=== PATIENT | male | born 1995 | race Caucasian/White ===

== ENCOUNTER 2018-09-06 10:19 | Emergency (ER) | payer OTHER ==
[~2018-09-06 10:19] MED LIST: CEFU500T10 PO; HYDR-4309 PO; RIZA5TAB30 PO
[2018-09-06 10:52] LABS: PLATELET COUNT, AUTOMATED 156 K/uL (150-450)
--- NOTE | 2018-09-06 11:04 | ER Report ---
History and Physical Time Seen By MD: 10:58 Hx. of Stated Complaint: STARTED WITH SUBXIPHOID AND MID ABD PAIN SINCE YESTERDAY WITH ASSOCIATED SOB, NAUSEA. Also noticed "fast heart rate," and fever/chill symptoms. HPI/ROS CHIEF COMPLAINT: Abdominal pain and chest discomfort HISTORY OF PRESENT ILLNESS: This is a 22-year-old male presents to the emergency department for abdominal pain and chest discomfort. Patient states that after midnight early this morning he developed some abdominal pain which radiated into his chest, felt his heart racing has taken Tylenol to help with the discomfort which is not helped. Patient does have intermittent abdominal pain bilateral lower quadrants, no dysuria, normal bowel movement today. No blood in the stools. Does have intermittent nausea no vomiting. While I'm in speaking with him his resting heart rate is in the 100s. He denies alcohol use. He states that he did drink a lot of water last night and this morning. So has aches and chills no fevers. REVIEW OF SYSTEMS: Constitutional: As above. Eyes: No discharge. ENT: No sore throat. Cardiovascular: As above. Respiratory: No cough, no shortness of breath. Gastrointestinal: As above. Genitourinary: No hematuria. Musculoskeletal: No back pain. Skin: No rashes. Neurological: No headache. Allergies: Coded Allergies: No Known Drug Allergies (Unverified , 09/03/17) Home Meds Active Scripts Ondansetron (ZOFRAN ODT) 4 Mg Tab.rapdis, 4 MG PO Q6H PRN for NAUSEA/VOMITING, #20 TAB.RAJAN 0 Refills Prov:JUAN CARLOS MCCOY GEODETIC COMPUTATOR-BC 09/06/18 Reported Medications Rizatriptan Benzoate (MAXALT) 5 Mg Tablet, 5 MG PO DAILY PRN for HEADACHE 09/03/17 Discontinued Reported Medications Hydrocodone Bit/Acetaminophen (NORCO 5-325 TABLET) 1 Each Tablet, 1-2 EACH PO Q4H PRN for PAIN, #30 TAB 09/08/17 Cefuroxime Axetil (CEFUROXIME) 500 Mg Tablet, 1000 MG PO BID for 7 Days, #14 TAB 09/08/17 Past Medical/Surgical History The patient has no significant past medical or surgical history. Reviewed Nurses Notes: Yes Hx Smoking: Yes Smoking Status: Never Smoker Hx Substance Use Disorder: No Constitutional Vital Sign - Last 24 Hours 09/06/18 09/06/18 09/06/18 09/06/18 10:19 10:24 10:28 10:34 Temp 98.8 Pulse ??? 99 101 Resp 16 18 B/P (MAP) 138/86 (103) 138/86 Pulse Ox 96 96 O2 Delivery Room Air 09/06/18 09/06/18 09/06/18 09/06/18 10:49 11:04 11:09 11:39 Pulse 106 111 103 99 Resp 16 9 10 34 Pulse Ox 96 97 97 95 09/06/18 09/06/18 09/06/18 09/06/18 11:44 11:59 12:14 12:29 Pulse 96 ??? 100 107 Resp 24 23 34 Pulse Ox 95 94 97 09/06/18 09/06/18 09/06/18 09/06/18 12:44 12:59 13:14 13:19 Pulse 101 108 99 96 Resp 18 18 18 19 Pulse Ox 94 95 98 97 09/06/18 09/06/18 13:27 13:34 Pulse 99 Resp 10 B/P (MAP) 125/75 (92) Pulse Ox 96 O2 Delivery Room Air Physical Exam General Appearance: The patient is alert, has no immediate need for airway protection and no signs of toxicity. Eyes: Pupils equal and round no pallor or injection. ENT, Mouth: Mucous membranes are moist. Respiratory: There are no retractions, lungs are clear to auscultation. Cardiovascular: Regular rate and rhythm, no murmurs, clicks or rubs. Gastrointestinal: Abdomen is soft, mild tenderness with deep palpation on the right lower quadrant no rebound tenderness. Significant discomfort to the left lower quadrant with palpation. Normoactive bowel sounds. No masses. No abdominal bruits. Neurological: Alert and oriented 4. Moving all extremities. Following all commands. No focal neuro deficits. Skin: Warm and dry, no rashes. Musculoskeletal: Neck is supple non tender. Extremities are nontender, nonswollen and have full range of motion. DIFFERENTIAL DIAGNOSIS: After history and physical exam differential diagnosis was considered for abdominal pain including but not limited to appendicitis, cholecystitis, gastritis and urinary tract infection. Medical Decision Making Data Points Result Diagram: 09/06/18 1036 09/06/18 1036 Laboratory Hematology Test 09/06/18 10:36 09/06/18 12:04 Red Blood Count 5.79 M/uL (4.00-5.60) Mean Corpuscular Volume 90.1 fL (80.0-96.0) Mean Corpuscular Hemoglobin 31.6 pg (26.0-33.0) Mean Corpuscular Hemoglobin Concent 35.1 g/dL (32.0-36.0) Red Cell Distribution Width 12.5 % (11.5-14.5) Mean Platelet Volume 9.8 fL (7.2-11.1) Neutrophils (%) (Auto) 91.6 % (39.4-72.5) Lymphocytes (%) (Auto) 4.2 % (17.6-49.6) Monocytes (%) (Auto) 3.9 % (4.1-12.4) Eosinophils (%) (Auto) 0.1 % (0.4-6.7) Basophils (%) (Auto) 0.2 % (0.3-1.4) Nucleated RBC Relative Count (auto) 0.0 /100WBC Neutrophils # (Auto) 7.5 K/uL (2.0-7.4) Lymphocytes # (Auto) 0.3 K/uL (1.3-3.6) Monocytes # (Auto) 0.3 K/uL (0.3-1.0) Eosinophils # (Auto) 0.0 K/uL (0.0-0.5) Basophils # (Auto) 0.0 K/uL (0.0-0.1) Nucleated RBC Absolute Count (auto) 0.00 K/uL Sodium Level 137 mmol/L (137-145) Potassium Level 3.5 mmol/L (3.5-5.0) Chloride Level 99 mmol/L (98-107) Carbon Dioxide Level 26 mmol/L (22-30) Blood Urea Nitrogen 14 mg/dl (9-21) Creatinine 0.90 mg/dl (0.66-1.25) Glomerular Filtration Rate Calc > 60.0 Random Glucose 119 mg/dl (75-110) Calcium Level 9.1 mg/dl (8.4-10.2) Total Bilirubin 0.8 mg/dl (0.2-1.3) Aspartate Amino Transf (AST/SGOT) 26 U/L (0-35) Alanine Aminotransferase (ALT/SGPT) 28 U/L (0-56) Alkaline Phosphatase 49 U/L (0-126) Troponin I < 0.012 ng/ml Total Protein 7.7 g/dl (6.3-8.2) Albumin 4.4 g/dl (3.5-5.0) Urine Color Yellow Urine Clarity Clear Urine pH 5.0 pH (4.8-9.5) Urine Specific [place] 1.038 Urine Protein Negative mg/dL (NEGATIVE) Urine Glucose (UA) Negative mg/dL (NEGATIVE) Urine Ketones Negative mg/dL (NEGATIVE) Urine Blood Negative (NEGATIVE) Urine Nitrite Negative (NEGATIVE) Urine Bilirubin Negative (NEGATIVE) Urine Urobilinogen Negative mg/dL (0.2-1.9) Urine Leukocyte Esterase Negative (NEGATIVE) Urine RBC <1 /HPF (0-2/HPF) Urine WBC 5 /HPF (0-5/HPF) Urine Squamous Epithelial Cells None /LPF (</=FEW) Urine Bacteria Negative /HPF (NONE-FEW) Urine Mucus Few /HPF (NONE-FEW) Chemistry Test 09/06/18 10:36 09/06/18 12:04 White Blood Count 8.2 k/uL (4.5-11.0) Red Blood Count 5.79 M/uL (4.00-5.60) Hemoglobin 18.3 g/dL (14.0-18.0) Hematocrit 52.2 % (42.0-52.0) Mean Corpuscular Volume 90.1 fL (80.0-96.0) Mean Corpuscular Hemoglobin 31.6 pg (26.0-33.0) Mean Corpuscular Hemoglobin Concent 35.1 g/dL (32.0-36.0) Red Cell Distribution Width 12.5 % (11.5-14.5) Platelet Count 156 K/uL (150-450) Mean Platelet Volume 9.8 fL (7.2-11.1) Neutrophils (%) (Auto) 91.6 % (39.4-72.5) Lymphocytes (%) (Auto) 4.2 % (17.6-49.6) Monocytes (%) (Auto) 3.9 % (4.1-12.4) Eosinophils (%) (Auto) 0.1 % (0.4-6.7) Basophils (%) (Auto) 0.2 % (0.3-1.4) Nucleated RBC Relative Count (auto) 0.0 /100WBC Neutrophils # (Auto) 7.5 K/uL (2.0-7.4) Lymphocytes # (Auto) 0.3 K/uL (1.3-3.6) Monocytes # (Auto) 0.3 K/uL (0.3-1.0) Eosinophils # (Auto) 0.0 K/uL (0.0-0.5) Basophils # (Auto) 0.0 K/uL (0.0-0.1) Nucleated RBC Absolute Count (auto) 0.00 K/uL Glomerular Filtration Rate Calc > 60.0 Calcium Level 9.1 mg/dl (8.4-10.2) Total Bilirubin 0.8 mg/dl (0.2-1.3) Aspartate Amino Transf (AST/SGOT) 26 U/L (0-35) Alanine Aminotransferase (ALT/SGPT) 28 U/L (0-56) Alkaline Phosphatase 49 U/L (0-126) Troponin I < 0.012 ng/ml Total Protein 7.7 g/dl (6.3-8.2) Albumin 4.4 g/dl (3.5-5.0) Urine Color Yellow Urine Clarity Clear Urine pH 5.0 pH (4.8-9.5) Urine Specific [place] 1.038 Urine Protein Negative mg/dL (NEGATIVE) Urine Glucose (UA) Negative mg/dL (NEGATIVE) Urine Ketones Negative mg/dL (NEGATIVE) Urine Blood Negative (NEGATIVE) Urine Nitrite Negative (NEGATIVE) Urine Bilirubin Negative (NEGATIVE) Urine Urobilinogen Negative mg/dL (0.2-1.9) Urine Leukocyte Esterase Negative (NEGATIVE) Urine RBC <1 /HPF (0-2/HPF) Urine WBC 5 /HPF (0-5/HPF) Urine Squamous Epithelial Cells None /LPF (</=FEW) Urine Bacteria Negative /HPF (NONE-FEW) Urine Mucus Few /HPF (NONE-FEW) Urinalysis Test 09/06/18 12:04 Urine Color Yellow Urine Clarity Clear Urine pH 5.0 pH (4.8-9.5) Urine Specific [place] 1.038 Urine Protein Negative mg/dL (NEGATIVE) Urine Glucose (UA) Negative mg/dL (NEGATIVE) Urine Ketones Negative mg/dL (NEGATIVE) Urine Blood Negative (NEGATIVE) Urine Nitrite Negative (NEGATIVE) Urine Bilirubin Negative (NEGATIVE) Urine Urobilinogen Negative mg/dL (0.2-1.9) Urine Leukocyte Esterase Negative (NEGATIVE) Urine RBC <1 /HPF (0-2/HPF) Urine WBC 5 /HPF (0-5/HPF) Urine Squamous Epithelial Cells None /LPF (</=FEW) Urine Bacteria Negative /HPF (NONE-FEW) Urine Mucus Few /HPF (NONE-FEW) EKG/Imaging EKG Interpretation 12 lead EKG: Times EKG 1052. Rhythm: Sinus tachycardia, ventricular rate 107 BPM. [place]: normal QRS: normal ST segments: No ST elevation or depression identified however there are some peaked T waves in V2 V3 and V4. No previous EKGs for comparison. Imaging Study: Frontal and lateral views of the chest Indication: Chest pain Comparison study: None Findings: PA and lateral views of the chest demonstrate no evidence of acute infiltrate. There is no evidence of pleural effusion. There is no evidence of pneumothorax. The mediastinal, cardiac, and diaphragmatic contours are unremarkable. The visualized bony structures are unremarkable. IMPRESSION: Unremarkable chest. Report Dictated By: Riley Samaniego at 09/06/2018 11:57 AM Report E-Signed By: Riley Samaniego at 09/06/2018 11:58 AM WSN:[id number] ED Course/Re-evaluation Clinical Indication for ER IV: Hydration, IV Access ED Course The patient was admitted to a room. A history and physical were obtained. Differential diagnoses were considered. An IV was started. A 1 L normal saline bolus was given. A CBC, CMP, troponin were obtained. CBC showing H&H 18.3 and 52.2, chemistry unremarkable. Negative troponin. EKG showing normal sinus rhythm. Negative two-view chest x-ray. Given the patient's complaints, physical exam did recommend an abdomen pelvis CT. the CT abdomen and pelvis was negative for any acute intra-abdominal abnormalities. Did note that the percent neutrophils was elevated, with the negative CT and the patient's complaints of abdominal pain this could be early gastroenteritis. I did speak with patient about the possibility of gastroenteritis in addition to this he may experience nausea vomiting and diarrhea. Patient expressed understanding. The patient did call after he was discharged stating that he did have some nausea and one episode of vomiting after eating some applesauce. No increase in abdominal pain. I did call in [employer] for the patient. And discussed a clear liquid diet for the next 1-2 days and slowly progress into a regular diet as tolerated. Decision to Disposition Date: Sep 06, 2018 Decision to Disposition Time: 13:36 Depart Departure Latest Vital Signs Vital Signs Date Time Temp Pulse Resp B/P (MAP) Pulse Ox O2 Delivery O2 Flow Rate FiO2 09/06/18 13:34 99 10 96 Room Air 09/06/18 13:27 125/75 (92) 09/06/18 10:28 98.8 Impression: Primary Impression: Abdominal pain of unknown etiology Condition: Improved Disposition: HOME OR SELF-CARE New Scripts Ondansetron (ZOFRAN ODT) 4 Mg Tab.rapdis 4 MG PO Q6H PRN for NAUSEA/VOMITING, #20 TAB.RAJAN 0 Refills Prov: JUAN CARLOS MCCOY-BC 09/06/18 Patient Instructions: Abdominal Pain (ED) Additional Instructions: I am unsure what is causing your abdominal pain, but feel reassured that the CT and chest x-ray were normal. Your lab studies do show that you may be behind on your fluid status. If you do not have a primary care provider, I would encourage you to establish with someone for reevaluation in the next 1-2 weeks. Be sure to drink plenty of fluids. Get plenty of rest. Return to the ED for any other concerns or worsening symptoms. JUAN CARLOS MCCOYP-BC Sep 06, 2018 11:03
[2018-09-06] MEDS ORDERED: IOPAMIDOL 76% 75 ML INFUS BTL 75 ML ONE (11:39)
--- NOTE | 2018-09-06 11:40 | EKG ---
FACILITY: [facility] [place] PATIENT NAME: IFEANYI WALLACE : [id number] MR: [id number] V: [id number] EXAM DATE: ORDERING PHYSICIAN: EVE HOYT TECHNOLOGIST: ADRIANE Test Reason : ABD PAIN Blood Pressure : / mmHG Vent. Rate : 107 BPM Atrial Rate : 107 BPM P-R Int : 162 ms QRS Dur : 092 ms QT Int : 314 ms P-R-T Axes : 061 080 061 degrees QTc Int : 419 ms Sinus tachycardia Nonspecific ST abnormality Abnormal ECG No previous ECGs available Confirmed by Augie Alonzo ([id number]) on 09/06/2018 4:22:06 PM Referred By: LAI Confirmed By:Augie Lopez
--- NOTE | 2018-09-06 12:02 | RADIOLOGY IMAGING REPORT ---
FACILITY: [facility] PATIENT NAME: Lebron Jacobs : 1995 MR: [id number] V: [id number] EXAM DATE: ORDERING PHYSICIAN: JUAN CARLOS MCCOY TECHNOLOGIST: Location: [facility] Patient: Lebron Jacobs : 1995 Visit/Account:[id number] Date of Sevice: 09/06/2018 Study: Frontal and lateral views of the chest Indication: Chest pain Comparison study: None Findings: PA and lateral views of the chest demonstrate no evidence of acute infiltrate. There is no evidence of pleural effusion. There is no evidence of pneumothorax. The mediastinal, cardiac, and diaphragmatic contours are unremarkable. The visualized bony structures are unremarkable. IMPRESSION: Unremarkable chest. Report Dictated By: Riley Samaniego at 09/06/2018 11:57 AM Report E-Signed By: Riley Samaniego at 09/06/2018 11:58 AM WSN:[id number]
--- NOTE | 2018-09-06 12:22 | RADIOLOGY IMAGING REPORT ---
FACILITY: [facility] PATIENT NAME: Lebron Jacobs : 1995 MR: [id number] V: [id number] EXAM DATE: ORDERING PHYSICIAN: JUAN CARLOS MCCOY TECHNOLOGIST: Location: [facility] Patient: Lebron Jacobs : 1995 Visit/Account:[id number] Date of Sevice: 09/06/2018 Study: CT scan of the abdomen and pelvis with intravenous contrast Indication: Left lower quadrant pain Comparison study: None Contrast used: 75 mL Isovue-370 Technique: Multiple axial images were obtained through the abdomen and pelvis following intravenous a dministration of iodinated contrast. Coronal and sagittal two-dimensional reconstructions were made f rom the original data set. One of the following dose optimization techniques was utilized in the performance of this exam: Autom ated exposure control; adjustment of the mA and/or kV according to the patient's size; or use of an i terative reconstruction technique. Specific details can be referenced in the facility's radiology C T exam operational policy. Findings: Lung bases: Unremarkable Liver: Unremarkable Spleen: Unremarkable Gallbladder: Unremarkable Stomach: Unremarkable Small bowel:The small bowel is unremarkable in appearance. Large bowel: The large bowel is unremarkable in appearance. Normal appendix is identified. Pancreas: Unremarkable Adrenal glands: Unremarkable Kidneys: Unremarkable Retroperitoneum: Unremarkable Pelvis: Unremarkable Bony structures: Unremarkable IMPRESSION: Unremarkable CT scan of the abdomen and pelvis with intravenous contrast. Report Dictated By: Riley Samaniego at 09/06/2018 12:12 PM Report E-Signed By: Riley Samaniego at 09/06/2018 12:18 PM WSN:[id number]
[2018-09-06] MEDS ORDERED: NS(*) 0.9% 1000 ML BAG 1,000 ML IV ONE (12:30)
[2018-09-06 13:27] VITALS: BP 125/75
[2018-09-06] MEDS ORDERED: ONDA4TAB PO (15:31)
== END 2018-09-06 13:50 | disposition home or self-care (01) ==
LOC: ER 11:02
DX: R10.31 Right lower quadrant pain (principal)
CPT/HCPCS: 71046; 74177; 81001; 84484; 85025; 93005; 96360; 99284; J7030; Q9967; 82040; 82247; 82310; 82374; 82435; 82565; 82947; 84075; 84132; 84155; 84295; 84450; 84460; 84520

== ENCOUNTER 2018-11-04 15:33 | Day surgery (SDC) | payer OTHER ==
[~2018-11-04 15:33] MED LIST changes: -HYDR-4309 PO; +HYDR-653 PO; +ONDA4TAB PO
--- NOTE | 2018-11-04 16:09 | ER Report ---
History and Physical Time Seen By MD: 15:50 HPI/ROS CHIEF COMPLAINT: Hand trauma HISTORY OF PRESENT ILLNESS: Otherwise healthy 22-year-old male comes emergency Department after having his hand lacerated by a table saw resulting in a significant degloving any avulsion laceration of his index finger and middle finger of his left hand no additional complaints noted REVIEW OF SYSTEMS: Respiratory: No cough, no dyspnea. Cardiovascular: No chest pain, no palpitations. Gastrointestinal: No vomiting, no abdominal pain. Musculoskeletal: Left hand laceration Remainder of the 14 system rev: Yes Allergies: Coded Allergies: No Known Drug Allergies (Unverified , 09/03/17) Home Meds Active Scripts Ondansetron (ZOFRAN ODT) 4 Mg Tab.rapdis, 4 MG PO Q6H PRN for NAUSEA/VOMITING, #20 TAB.RAJAN 0 Refills Prov:JUAN CARLOS MCCOY BARREL LATHE OPERATOR OUTSIDE-BC 09/06/18 Reported Medications Rizatriptan Benzoate (MAXALT) 5 Mg Tablet, 5 MG PO DAILY PRN for HEADACHE 09/03/17 Reviewed Nurses Notes: Yes Old Medical Records Reviewed: Yes Hx Smoking: Yes Smoking Status: Never Smoker Hx Substance Use Disorder: No Constitutional Vital Sign - Last 24 Hours 11/04/18 15:44 Temp 98.6 Pulse 76 Resp 20 B/P (MAP) 144/98 Pulse Ox 95 O2 Delivery Room Air Physical Exam General appearance: Alert no distress. Respiratory: Chest is non tender, lungs are clear to auscultation. Cardiac: Regular rate and rhythm [ ] Left hand examination index finger of the left hand almost a complete avulsion of the distal tuft nailbed and distal proximal aspect of the index finger with flexion at the DIP joint obvious bone exposure middle finger partial avulsion deep laceration to the bone some flexion of the DIP and the PIP noted DIFFERENTIAL DIAGNOSIS: After history and physical exam differential diagnosis was considered for severe laceration to the index and middle finger Medical Decision Making ED Course/Re-evaluation ED Course ED clinical course medical decision-making 22-year-old male who came a severe hand trauma secondary to a table saw resulting in an avulsion in deep lacerations of the index and 3rd finger 1st and 2nd finger of the nondominant left hand evaluation by orthopedic hand specialist at times it will require emergent surgery he'll be admitted under orthopedics and taken to the OR for definitive care turgor procedure note digital block was performed 1-2 mL of lidocaine without epinephrine was injected and had good analgesia patient tolerated well Decision to Disposition Date: Nov 04, 2018 Decision to Disposition Time: 16:43 Depart Departure Latest Vital Signs Vital Signs Date Time Temp Pulse Resp B/P (MAP) Pulse Ox O2 Delivery O2 Flow Rate FiO2 11/04/18 15:44 98.6 76 20 144/98 95 Room Air Impression: Primary Impression: Laceration of hand with complication Condition: Improved Disposition: Admitted from ER JOSEFINA COLLIER MD Nov 04, 2018 16:09
[2018-11-04] MEDS ORDERED: FAMOTIDINE(*) 20MG/50ML PREMIX 50 ML IVPB ONE (16:40)
[2018-11-04] MEDS ORDERED: NORMOSOL R SOLN(*) 1000 ML BAG 1,000 ML IV PRN (16:40)
--- NOTE | 2018-11-04 16:45 | RADIOLOGY IMAGING REPORT ---
FACILITY: [facility] PATIENT NAME: Lebron Jacobs : 1995 MR: [id number] V: [id number] EXAM DATE: ORDERING PHYSICIAN: JOSEFINA COLLIER TECHNOLOGIST: Location: [facility] [place] Patient: Lebron Jacobs : 1995 Visit/Account:[id number] Date of Sevice: 11/04/2018 Technique: HAND COMPLETE LEFT HISTORY: Trauma Comparison studies: None FINDINGS: Noted is an acute, displaced, intra-articular fracture involving the base of the distal sec ond phalanx. Multiple comminuted fracture fragments are noted as well as an adjacent skin laceration. There is potential fracture involvement of the distal aspect of the second middle phalanx. Acute, c omminuted fractures are also visualized involving the distal and middle third phalanges. Adjacent ski n laceration is noted within the third digit IMPRESSION: 1. Acute fractures involving the second and third digits as described above. Report Dictated By: Dionicio Jasmine DO at 11/04/2018 4:35 PM Report E-Signed By: Dionicio Jasmine DO at 11/04/2018 4:40 PM WSN:[id number]
[2018-11-04] MEDS ORDERED: ceFAZolin 1 GM VIAL IVP ONE (16:50)
[2018-11-04] MEDS ORDERED: ROPIVACAINE 0.2% 20 ML VIAL ONE (17:57)
[2018-11-04] MEDS ORDERED: MIDAZOLAM 2 MG/2 ML VIAL IVP PRN (18:00)
[2018-11-04] MEDS ORDERED: PROPOFOL EMUL(*) 10MG/ML 20 ML 20 ML ONE (18:01)
[2018-11-04] MEDS ORDERED: fentaNYL CITR 250 MCG/5 ML AMP ONE (18:04)
[2018-11-04] MEDS ORDERED: LIDOCAINE 2% IV 100 MG/5ML SYR ONE (18:05)
[2018-11-04] MEDS ORDERED: ceFAZolin 1 GM VIAL ONE (18:11)
[2018-11-04] MEDS ORDERED: DEXAMETHASONE SOD 4 MG/ML VIAL ONE (18:25)
[2018-11-04] MEDS ORDERED: ONDANSETRON 4 MG/2 ML VIAL ONE (18:26)
[2018-11-04] MEDS ORDERED: NS(*) 0.9% 100 ML ADDVANT BAG 100 ML ONE (18:37)
[2018-11-04] MEDS ORDERED: KETAMINE HCL 200 MG/20 ML MDV ONE (18:38)
[2018-11-04] MEDS ORDERED: NEOMYCIN/POLYMYX/BACITR 30 GM TP ONE (18:55)
[2018-11-04] MEDS ORDERED: HYDR-385 PO (20:35)
[2018-11-04] MEDS ORDERED: CEPH500T7 PO (20:36)
[2018-11-04 21:00] VITALS: BP 132/71
--- NOTE | 2018-11-04 21:14 | OPERATIVE REPORT 1 ---
EVENT DATE: November 04, 2018 SURGEON: Lauro Serrato MD ANESTHESIOLOGIST: Orestes Smart MD ANESTHESIA: General. RENEWABLE ENERGY BROKER: TEMI Ramírez PREOPERATIVE DIAGNOSES 1. Table saw injury to left hand with near complete destruction of terminal phalanx index finger and distal aspect of middle phalanx. 2. Coronal plane destruction of long finger volar aspect of distal interphalangeal joint, volar aspect of distal middle phalanx, and proximal aspect of distal phalanx. 3. Damage to nail plate of ring finger. POSTOPERATIVE DIAGNOSES 1. Table saw injury to left hand with near complete destruction of terminal phalanx index finger and distal aspect of middle phalanx. 2. Coronal plane destruction of long finger volar aspect of distal interphalangeal joint, volar aspect of distal middle phalanx, and proximal aspect of distal phalanx. 3. Damage to nail plate of ring finger. PROCEDURES PERFORMED 1. Revision amputation of left index finger without flaps (33683). 2. Debridement of complex wound at long finger, approximately 7 cm in total length including skin, subcutaneous tissue, and bone (56562), and this was associated with open bony fracture. 3. Fusion of distal interphalangeal joint at left long finger (90502). 4. Nail plate removal at ring finger due to damage from saw (95968). ESTIMATED BLOOD LOSS Minimal. INTRAVENOUS FLUIDS 1000 TOURNIQUET TIME 76 SPECIMENS No specimens. COMPLICATIONS No complications. IMPLANTS USED Two 0.045-inch K-wires. SUMMARY OF PROCEDURE The patient was brought into the operating room and placed on the OR table in the supine position. After obtaining adequate general anesthesia, the left upper extremity was prepped and draped in the usual sterile fashion. The limb was exsanguinated, and the tourniquet was inflated. We started with an assessment of the wounds, identifying the damage to the index, long, and ring fingers. On the ring finger, it was really just nail plate damage with a little bit of damage to the sterile nail matrix, but it was quite minor. On the long finger, there was a rather impressive coronal plane laceration created by the table saw that extended from the pulp space along the volar aspect of the distal phalanx, across the DIP joint, destroying it and the tendons associated with it, and then into the volar surface of the condyle of the middle phalanx. On the index finger, there was a deeper laceration in about the same plane extending through and pretty much destroying the entire distal phalanx and damaging the condyle of the middle phalanx as well. The tendon was also gone, as were the nerves. I say they were gone because the curf of the table saw was so wide that it removed a large portion of the finger. The wounds were all irrigated extensively with irrigation and a curette to clear out the damaged areas of bone to make sure that it was as clean as we could get it. Quite a high volume of fluid was pushed through. After we had done this, we started with the index finger, isolating the other fingers. A revision amputation was undertaken by removing what little remained of the terminal phalanx. It was on a tag of skin that was only about 8 mm wide, so it would not be useable. We cut this off and then began to work a revision amputation by removing some elements of the residual condyle on the middle phalanx to make it a little bit more broad since it had been shaved off. We cut this back only so far as it was necessary in order to get primary closure, which we then created by insetting flaps, starting by bringing in the volar radial tissue out around to the ulnar side so we had a nice, smooth area for pinch, and then cutting off the excess tissue on the ulnar side, securing it with nylon suture. Having done this, we then moved on to the long finger. Here, we did careful inspection of the available tissue and debrided down to bone. There was a lot of tissue that had to be removed. When we got down to clear, viable tissue, it looked like the volar flap was very long and did technically exceed the 3:1 ratio that we usually allow, but I think there was some arterial supply in it, and therefore, that would make it more than just a random pattern flap. In order to remove this, it would require amputation of the long finger all the way down to the mid portion of the middle phalanx, and this is not really acceptable, so I thought we would give him the benefit of doubt and try to save this. The volar surface of the digit was essentially resected by the curf of the saw. The tendon was gone, as were the nerves. The nerves had been cut back on the index finger, and I thought about doing that here as well, but I figured we would try to leave him sensation in the tip if at all possible, so we did not do that. Furthermore, I really did not want to dissect into the neurovascular bundles for fear of damaging the blood supply, what little was present. We removed what little articular surface remained on the DIP joint. Both the terminal phalanx and the middle phalanx had tissue shaved off it in the coronal plane, making it very thin and not really suitable for an attempt at an Acutrak fusion screw. Consequently, we switched and decided to just try it with K-wires. If this failed, we could always do an Acutrak fusion screw later where there was better bone formation later on, but hopefully, this will work. We initially decorticated both sides and then used a 0.035-inch K-wire to multiply fenestrate the holes so that they would be in contact with each other. We then went antegrade with two 0.045 wires out the tip of the finger and then created paths into the middle phalanx under direct fluoroscopic guidance and then interdigitated those two, passed the wires, and advanced them into the middle phalanx to create a straight finger. I then compressed the two together and added additional bone graft into the DIP joint from tissue harvested off the index fingertip which we had removed previously. We placed a cap on the tip of this long finger pin and then began to debride additional tissue before closing the large flap on the volar surface of the long finger. Some of this had to be allowed to heal by secondary intention because it did not really match up, but there were no large voids. We then moved on to the ring finger where all that was necessary was removal of portions of the nail plate and a bit of debridement of the nail matrix where the saw had struck the finger. We then did the digital block and then deflated the tourniquet. I was pleased to see that it seems that the long flap on the volar surface of the long finger is most likely going to survive as it pinked up fairly nicely, as did the dorsal surface. He was given a dry, sterile dressing and a volar splint. He was then awakened and transferred to the recovery room in stable condition. JUANCARLOS
[2018-11-04 21:15] VITALS: BP 131/72
[2018-11-04] MEDS ORDERED: APAP/HYDROCODONE 325/5 TAB ONE (21:18)
[2018-11-04] MEDS ORDERED: ACET/HYDROC 5/325MG TH ER ONLY 2 TAB/BOTTLE ONE ×2 (21:19→21:20)
[2018-11-04 21:26] VITALS: BP 134/84
[2018-11-04 21:29] VITALS: BP 115/76
== END 2018-11-04 21:00 | disposition home or self-care (01) ==
LOC: ER 15:59 → OR 16:49
PROVIDERS: ATTEND Orthopaedic Surgery Hand Surgery
DX: S61.315A Laceration without foreign body of left ring finger with damage to nail, initial encounter (principal); S62.603B Fracture of unspecified phalanx of left middle finger, initial encounter for open fracture; S62.601B Fracture of unspecified phalanx of left index finger, initial encounter for open fracture; W29.8XXA Contact with other powered hand tools and household machinery, initial encounter
CPT/HCPCS: 11730; 26860; 26951; 73130; 76000; A4565; C1713; J0690; J1100; J2001; J2250; J2405; J2704; J2795; J3010; J3490; J7050